=== PATIENT | male | born 1990 | race Two or more races ===

== ENCOUNTER 2024-12-14 11:43 | Emergency (ER) | payer BC ==
[2024-12-14 11:49] VITALS: BP 145/74; PULSE 83; RESP 18; TEMP 98; BMI 30.8
[2024-12-14] MEDS ORDERED: LIDOCAINE 4% PATCH TP ONE ×2 (12:40→12:46)
[2024-12-14] MEDS ORDERED: IBUPROFEN 600 MG TABLET (FP) PO ONE (12:40)
[2024-12-14] MEDS ORDERED: IBUPROFEN 400 MG TABLET (FP) PO ONE (12:46)
[2024-12-14] MEDS ORDERED: LIDOCAINE PATCH REMOVAL MC SCH (22:00)
== END 2024-12-14 14:03 | disposition home or self-care (01) ==
LOC: JER 11:43
DX: G44.209 Tension-type headache, unspecified, not intractable (principal); M25.511 Pain in right shoulder; M25.512 Pain in left shoulder
CPT/HCPCS: 93005; 93010; 99283-25